=== PATIENT | female | born 1965 | race Caucasian/White ===

== ENCOUNTER 2021-08-08 16:44 | Emergency (ER) | payer OTHER, SELFPAY ==
--- NOTE | 2021-08-08 16:55 | ED.SKABFB ---
HPI - Skin/Abscess/Foreign Bdy General Chief complaint: Skin/Abscess/Foreign Body Stated complaint: Abrasion on Arm Time Seen by Provider: 08/08/21 16:58 Source: patient, family and RN notes reviewed Mode of arrival: ambulatory Limitations: no limitations History of Present Illness HPI narrative: Nadia 55-year-old female patient who ambulated into the [facility]. Patient states she was scratched by her dog on Saturday. Patient states she is been cleaning the room the wound with peroxide. Patient noticed on Saturday was started to get red and warm. Patient also states she occasionally has blood in her right nare. She will rinse it out with saline and occasionally get clots. Patient has multiple old bruising throughout her left arm from previous falls. MD complaint: abscess/boil Related Data Home Medications Medication Instructions Recorded Confirmed amiodarone 07/24/19 atorvastatin 07/24/19 bupropion HCl mg PO 07/24/19 cetirizine mg 07/24/19 citalopram mg 07/24/19 famotidine 07/24/19 furosemide 07/24/19 gabapentin 07/24/19 glimepiride mg 07/24/19 hydroxyzine HCl 07/24/19 levothyroxine 07/24/19 lorazepam 07/24/19 losartan 07/24/19 metoprolol succinate PO 07/24/19 nitroglycerin mg 07/24/19 oxybutynin chloride mg PO 07/24/19 rivaroxaban [Xarelto] mg 07/24/19 sitagliptin [Januvia] mg 07/24/19 empagliflozin [Jardiance] mg 08/08/21 insulin detemir U-100 [Levemir unit SUBCUT 08/08/21 08/08/21 FlexTouch U-100 Insuln] ketorolac 08/08/21 Allergies Allergy/AdvReac Type Severity Reaction Status Date / Time Penicillins Allergy Unknown Rash Verified 08/08/21 17:02 Review of Systems Review of Systems: CONSTITUTIONAL: Denies body aches, fever, chills, or sweats. EYES: Denies visual changes, redness, or discharge. ENT: Denies rhinorrhea, congestion, sore throat, or otalgia. CARDIOVASCULAR: Denies chest pain, palpitations, or edema. RESPIRATORY: Denies cough or dyspnea. GASTROINTESTINAL: Denies abdominal pain, nausea, vomiting, or diarrhea. GENITOURINARY: Denies dysuria or hematuria. SKIN: Denies rash, itching, abrasion to left arm, redness and warmth to area. MUSCULOSKELETAL: Denies back pain, joint pain, or myalgia. NEUROLOGIC: Denies headache, numbness, tingling, or weakness. PSYCH: Denies depression or anxiety. All systems reviewed & are unremarkable except as noted in HPI and below PMFSH Past Medical History Medical History Afib CHF (congestive heart failure) Depression Diabetes Hypercholesterolemia Pneumonia PVD (peripheral vascular disease) Sleep apnea Surgical History Surgical History H/O inguinal hernia repair Hx of cholecystectomy Social History Social History Smoking status: Never smoker Alcohol intake: never Substance use: never Comments At time of signature, I have reviewed and agree with nursing past medical, surgical, social and family history unless otherwise noted. Please see nursing chart for further information. There is no relevant family history pertinent to the presenting complaint Exam Narrative: GENERAL: Well-appearing, well-nourished, and in no acute distress. HEAD: Normocephalic, atraumatic. EYES: EOMI. No redness or drainage. Conjunctivae normal. ENT: Mucous membranes pink and moist. right nare with minimal amount dried red drainage, no bleeding present. NECK: Normal AROM. Supple. CHEST: No respiratory distress. MUSCULOSKELETAL: No bony tenderness. EXTREMITIES: Normal range of motion. No edema. SKIN: Warm, dry, no rash. Capillary refill normal. Poor skin turgor.1cm abrasion to left forearm with ecchymosis, erythema approximately 2cm surrounding abrasion, warm to touch. Healing ecchymotic area to posterior arm. NEURO: No focal deficits. Alert and oriented x3. Gait stead
[2021-08-08 16:56] VITALS: BP 94/56; PULSE 78; RESP 18; TEMP 36.8; O2SAT 98
== END 2021-08-08 17:19 | disposition home or self-care (01) ==
PROVIDERS: Emergency Provider Nurse Practitioner Family
DX: L03.114 Cellulitis of left upper limb (principal); I48.91 Unspecified atrial fibrillation; E11.9 Type 2 diabetes mellitus without complications; E78.00 Pure hypercholesterolemia, unspecified; I73.9 Peripheral vascular disease, unspecified; G47.30 Sleep apnea, unspecified; I50.9 Heart failure, unspecified
CPT/HCPCS: 99213; G0463

== ENCOUNTER 2021-10-06 14:13 | Emergency (ER) | payer OTHER, SELFPAY ==
--- NOTE | ~2021-10-06 | XR_ITS ---
EXAMINATION: XR chest 2V DATE: 10/06/2021 14:49 INDICATION: Cough and shortness of breath. TECHNIQUE: Frontal and lateral views of the chest were obtained. COMPARISON: Chest 2 views 07/24/2019 FINDINGS: Calcified right lung nodules and calcified right hilar lymph nodes are consistent with old granulomatous disease. No pleural effusion or pneumothorax. The heart size is normal. IMPRESSION: 1. No acute cardiopulmonary disease. Reviewed, dictated and finalized at location E. [employer]
--- NOTE | 2021-10-06 14:15 | ED.URI ---
HPI - URI/Sore Throat General Chief Complaint: Upper Respiratory Infection Stated Complaint: right eye swelling/ear pain/soree throat Source: patient and RN notes reviewed Mode of arrival: ambulatory Limitations: no limitations History of Present Illness HPI Narrative: 55-year-old female presents with concern for general malaise, body aches, cough, shortness of breath, sore throat, nasal congestion, bloody nose, right eye swelling. Reports she saw her primary care doctor who put her on a steroid. She reports symptoms have not improved. Reports symptoms started Saturday. She denies taking any other [id number] medications. MD elicited complaint: cough and sore throat Related Data Home Medications Medication Instructions Recorded Confirmed amiodarone 200 mg PO DAILY 07/24/19 10/06/21 atorvastatin 40 mg PO DAILY 07/24/19 10/06/21 bupropion HCl 300 mg PO DAILY 07/24/19 10/06/21 cetirizine 10 mg PO DAILY 07/24/19 10/06/21 citalopram 40 mg PO DAILY 07/24/19 10/06/21 famotidine 20 mg PO DAILY 07/24/19 10/06/21 furosemide 40 mg PO DAILY 07/24/19 10/06/21 gabapentin 300 mg PO DAILY 07/24/19 10/06/21 glimepiride 2 mg PO DAILY 07/24/19 10/06/21 hydroxyzine HCl 25 mg PO DAILY 07/24/19 10/06/21 levothyroxine 125 mcg PO DAILY 07/24/19 10/06/21 lorazepam 1 mg PO DAILY 07/24/19 10/06/21 losartan 25 mg PO DAILY 07/24/19 10/06/21 metoprolol succinate 50 mg PO DAILY 07/24/19 10/06/21 nitroglycerin 0.4 mg SUBLINGUAL DIRECTED PRN 07/24/19 10/06/21 oxybutynin chloride 5 mg PO DAILY 07/24/19 10/06/21 rivaroxaban [Xarelto] 20 mg PO DAILY 07/24/19 10/06/21 sitagliptin [Januvia] 100 mg PO DAILY 07/24/19 10/06/21 empagliflozin [Jardiance] 25 mg PO DAILY 08/08/21 10/06/21 insulin detemir U-100 [Levemir 1 unit SUBCUT DIRECTED 08/08/21 10/06/21 FlexTouch U-100 Insuln] ketorolac 10 mg PO DAILY 08/08/21 10/06/21 liraglutide [Victoza 3-Salvatore] 0.6 mg SUBCUT DIRECTED 10/06/21 10/06/21 prednisone 20 mg PO DAILY 10/06/21 10/06/21 Allergies Allergy/AdvReac Type Severity Reaction Status Date / Time Penicillins Allergy Unknown Rash Verified 10/06/21 14:15 Review of Systems Review of Systems: CONSTITUTIONAL: Reports malaise, chills, sweats EYES: Denies visual changes, redness, or discharge. ENT: Reports rhinorrhea, congestion, sinus pain, otalgia and sore throat. CARDIOVASCULAR: Denies chest pain, palpitations, or edema. RESPIRATORY: Reports cough, dyspnea. GASTROINTESTINAL: Denies abdominal pain, nausea, vomiting, diarrhea SKIN: Denies rash or itching. MUSCULOSKELETAL: Reports myalgia. NEUROLOGIC: Denies headache. All systems reviewed & are unremarkable except as noted in HPI and below PMFSH Past Medical History Medical History Afib CHF (congestive heart failure) Depression Diabetes Hypercholesterolemia Pneumonia PVD (peripheral vascular disease) Sleep apnea Surgical History Surgical History H/O inguinal hernia repair Hx of cholecystectomy Social History Social History Smoking status: Never smoker Alcohol intake: never Substance use: never Comments At time of signature, agree with nursing past medical, surgical, social and family history. There is no relevant family history pertinent to the presenting complaint Exam Narrative: GENERAL: Nontoxic-appearing and in no acute distress. HEAD: Normocephalic EYES: PERRLA, left conjunctivae clear right sclera injected, conjunctive injected with superficial edema to the upper and lower lid ENT: Nares clear, turbinates edematous and erythematous, clear discharge. Mucous membranes moist. TM pearly moise with dull light reflex bilaterally; no tragal tenderness. Oropharynx not erythematous without lesions. Tonsils not enlarged and without exudate, no drooling, no hoarseness, no trismus, uvula midline. NECK: Supple. No lymphadenopa
[2021-10-06 14:21] VITALS: BP 123/69; PULSE 80; RESP 20; TEMP 37.2; O2SAT 100
[2021-10-06 14:42] VITALS: BP 123/69; PULSE 80; RESP 20; TEMP 37.2; O2SAT 100
== END 2021-10-06 15:07 | disposition home or self-care (01) ==
PROVIDERS: Emergency Provider Nurse Practitioner
DX: J32.9 Chronic sinusitis, unspecified (principal); J40 Bronchitis, not specified as acute or chronic; H10.31 Unspecified acute conjunctivitis, right eye; Z20.822 Contact with and (suspected) exposure to COVID-19; I48.91 Unspecified atrial fibrillation; I50.9 Heart failure, unspecified; E11.9 Type 2 diabetes mellitus without complications; E78.00 Pure hypercholesterolemia, unspecified; G47.30 Sleep apnea, unspecified; I73.9 Peripheral vascular disease, unspecified
CPT/HCPCS: 71046; 87426; 87804; 99213; C9803; G0463